=== PATIENT | male | born 1990 | race African-American/Black ===

== ENCOUNTER 2018-12-26 04:01 | Emergency (ER) | payer SELFPAY ==
[~2018-12-26] VITALS: Ht 175.3 cm; Wt 96.4 kg
[2018-12-26 04:06] VITALS: BP 117/72; Ht 175.3 cm; Wt 96.4 kg
[2018-12-26] MEDS ORDERED: AMOXICILLIN500 M1 PO (04:19)
[2018-12-26] MEDS ORDERED: IBUPROFEN800 MG PO (04:19)
== END 2018-12-26 04:44 | disposition home or self-care (01) ==
LOC: D.ER 04:01
DX: K02.9 Dental caries, unspecified (principal); K04.7 Periapical abscess without sinus

== ENCOUNTER 2019-05-23 14:50 | Emergency (ER) | payer SELFPAY ==
[~2019-05-23] VITALS: Ht 175.3 cm; Wt 95.5 kg
[~2019-05-23 14:50] MED LIST: AMOXICILLIN500 M1 PO; IBUPROFEN800 MG PO
[2019-05-23 15:15] VITALS: Ht 175.3 cm; Wt 95.5 kg
[2019-05-23 17:11] VITALS: BP 129/84
== END 2019-05-23 17:12 | disposition home or self-care (01) ==
LOC: D.ER 14:50
DX: L03.213 Periorbital cellulitis (principal); M25.562 Pain in left knee; R07.89 Other chest pain

== ENCOUNTER 2019-09-19 20:35 | Emergency (ER) | payer SELFPAY ==
[~2019-09-19] VITALS: Ht 175.3 cm; Wt 95.5 kg
[2019-09-19 20:56] VITALS: Ht 175.3 cm; Wt 95.5 kg
[2019-09-19 21:29] VITALS: BP 135/85
[2019-09-19 21:47] LABS: BILIRUBIN NEGATIVE (NEGATIVE); GLUCOSE NEGATIVE (NEGATIVE); KETONE NEGATIVE (NEGATIVE); NITRITE NEGATIVE (NEGATIVE); UROBILINOGEN NORMAL (NORMAL)
[2019-09-19 21:48] LABS: RED CELLS - URINE OCC /hpf (0-5); WHITE CELLS - URINE 0-5 /hpf (NEGATIVE)
[2019-09-19 21:50] LABS: BACTERIA FEW /hpf (NEGATIVE)
== END 2019-09-19 21:32 | disposition home or self-care (01) ==
LOC: D.ER 20:35
PROVIDERS: Family Medicine
DX: Z20.2 Contact with and (suspected) exposure to infections with a predominantly sexual mode of transmission (principal); R36.9 Urethral discharge, unspecified; R30.0 Dysuria